=== PATIENT | male | born 1985 | race Caucasian/White ===

== ENCOUNTER 2016-11-14 18:12 | Emergency (ER) | payer SELFPAY ==
[~2016-11-14] VITALS: Ht 177.8 cm; Wt 113.4 kg
[2016-11-14 18:12] VITALS: BP 160/107; PULSE 69; RESP 19; TEMP 97.4; O2SAT 95
--- NOTE | 2016-11-14 18:20 | NUR ---
BROUGHT BACK TO BED #3 BY HUNG MORAN, HUNG MORAN EVALUATING PT.
[2016-11-14] MEDS ORDERED: KETOROLAC TROMETHAMINE 60 MG/2 ML VIAL IM ONE (18:30)
--- NOTE | 2016-11-14 18:39 | NUR ---
TAKEN TO RADIOLOGY FOR TESTING
--- NOTE | 2016-11-14 18:47 | NUR ---
RETURNED TO [facility]. WILL MONITOR
--- NOTE | 2016-11-14 18:50 | NUR ---
Pt brought in by friend in stable condition. Pt c/o lower back pain 10/10 when he moves, but denies pain while laying down. Pt stated that he "jolted" up the stairs and felt a severe pain. Pt stated pain was so severe he crawled up the stairs. -sob -chest pain. No acute distress noted at this time, will continue to monitor
[2016-11-14] MEDS ORDERED: HYDROmorphone 1 MG INJ. 1 MG/ML AMPUL IM ONE (19:45)
[2016-11-14 20:11] VITALS: BP 155/88; PULSE 69; RESP 19; TEMP 97.4; O2SAT 95
--- NOTE | 2016-11-14 20:11 | NUR ---
Patient given written and verbal discharge instructions and verbalizes understanding. ER BUSINESS ADMINISTRATOR SHANTI discussed with patient the results and treatment provided. Patient in stable condition. ID arm band removed. Rx of MOTRIN 800, FLEXERIL, PREDNISONE given. Patient educated on pain management and to follow up with PMD. Pain Scale 2/10. Opportunity for questions provided and answered.
== END 2016-11-14 20:11 | disposition home or self-care (01) ==
LOC: SED 18:12
DX: M54.17 Radiculopathy, lumbosacral region (principal); F12.20 Cannabis dependence, uncomplicated
CPT/HCPCS: 72131; 96372; 99284; J1170; J1885

== ENCOUNTER 2022-06-06 10:17 | Emergency (ER) | payer OTHER, MEDICAID ==
[~2022-06-06] VITALS: Ht 180.3 cm; Wt 90.7 kg
[2022-06-06 10:39] VITALS: BP_SYST 139
--- NOTE | 2022-06-06 10:45 | NUR ---
Patient triaged and placed in waiting room. VSS and patient appears in no acute distress at this time. Accompanied by staff, awaiting available bed, and Dr. Patria OLSON notified of need for MSE.
--- NOTE | 2022-06-06 15:01 | NUR ---
CALL FOR PATIENT NO ANSWER
== END 2022-06-06 15:01 | disposition left against medical advice (07) ==
LOC: SED 10:17
DX: M54.50 Low back pain, unspecified (principal); Z53.21 Procedure and treatment not carried out due to patient leaving prior to being seen by health care provider